=== PATIENT | male | born 1970 | race Caucasian/White ===

== ENCOUNTER 2019-07-04 16:56 | Emergency (ER) | payer MEDICARE ==
[~2019-07-04] VITALS: Ht 175.2 cm; Wt 129.3 kg
[2019-07-04] MEDS ORDERED: ZOLPIDEM10 MG PO (17:13)
[2019-07-04] MEDS ORDERED: NAPROSYN500 MG PO (17:13)
== END 2019-07-04 17:35 | disposition home or self-care (01) ==
LOC: ED 16:56
DX: G47.00 Insomnia, unspecified (principal); M13.869 Other specified arthritis, unspecified knee; Z76.0 Encounter for issue of repeat prescription; G89.29 Other chronic pain